=== PATIENT | male | born 1950 | race Caucasian/White ===

== ENCOUNTER 2017-12-14 14:10 | Outpatient (CLI) | payer MEDICARE, OTHER ==
[2017-12-14 14:35] LABS: BASOPHILS # (AUTO) 0.1 /CMM (0.0-0.2); EOSINOPHILS # (AUTO) 0.1 /CMM (0.0-0.7); EOSINOPHILS % (AUTO) 1.8 % (0.0-6.0); HEMATOCRIT 43 % (39-51); HEMOGLOBIN 14.3 g/dL (13.5-17.5); LYMPHOCYTES % (AUTO) 14.8 % (20.0-44.0); MEAN CORPUSCULAR HEMOGLOBIN 31 PG (26.0-33.0); MEAN CORPUSCULAR HGB CONC 33 g/dl (31.0-36.0); MEAN CORPUSCULAR VOLUME 92 fL (80-96); MONOCYTES # (AUTO) 0.7 /CMM (0.1-1.30); MONOCYTES % (AUTO) 10.4 % (2.0-12.0); NEUTROPHILS # (AUTO) 4.8 /CMM (1.8-8.9); PLATELET COUNT (AUTO) 145 /CMM (150-450); RDW COEFFICIENT OF VARIATION 16.8 (11.5-15.0); RED BLOOD CELL COUNT(AUTO) 4.68 MIL/uL (4.5-6.0); WHITE BLOOD COUNT (AUTO) 6.7 K/uL (4.3-11.0)
[2017-12-14 15:33] LABS: THYROID STIMULATING HORMONE 1.38 uIU/mL (0.358-3.74)
[2017-12-14 15:43] LABS: DIGOXIN 0.81 ng/mL (0.90-2.00)
[2017-12-15 12:38] LABS: ALBUMIN 3.6 g/dL (3.4-5.0); CALCIUM, SERUM 9.2 mg/dL (8.5-10.1); CREATININE 0.9 mg/dL (0.6-1.3); POTASSIUM 4.6 mmol/L (3.5-5.1); TOTAL PROTEIN, SERUM 6.6 g/dL (6.4-8.2)
== END 2017-12-14 23:59 | disposition home or self-care (01) ==
LOC: LAB 14:10
PROVIDERS: ATTEND Internal Medicine Interventional Cardiology
DX: I50.9 Heart failure, unspecified (principal); E11.9 Type 2 diabetes mellitus without complications; R53.83 Other fatigue
CPT/HCPCS: 36415; 80053-TC; 80162-TC; 83880; 84443-TC; 85025-TC